=== PATIENT | female | born 1960 | race Caucasian/White ===

== ENCOUNTER → 2016-09-08 | Outpatient (CLI) | payer SELFPAY ==
[2016-09-08 09:23] LABS: Hemoglobin A1C 6.9 % (4.2-6.1)
== END | disposition home or self-care (01) ==
LOC: LABWHC1 07:58
PROVIDERS: ATTEND Podiatrist
DX: S80.922A Unspecified superficial injury of left lower leg, initial encounter (principal)
CPT/HCPCS: 36415; 83036

== ENCOUNTER → 2016-11-14 | Outpatient (CLI) | payer MEDICARE, OTHER | END | disposition home or self-care (01) | LOC: LABPAT 11:05 | PROVIDERS: ATTEND Podiatrist | DX: Z53.9 Procedure and treatment not carried out, unspecified reason (principal) ==

== ENCOUNTER → 2017-03-23 | Outpatient (CLI) | payer MEDICARE, BC ==
--- NOTE | 2017-03-23 11:33 | XR ---
EXAMINATION TYPE: XR tibia fibula LT DATE OF EXAM: 03/23/2017 COMPARISON: NONE HISTORY: Nonhealing wound TECHNIQUE: Two views are submitted. FINDINGS: There is sclerosis and periosteal reaction involving the distal tibia and fibula with fragmentation a nd dislocation of the ankle joint. Correlate for Charcot joint. Stents of soft tissue edema and swell ing. Chronic osteomyelitis in the differential diagnosis. IMPRESSION: 1. Marked sclerosis of the distal tibia and fibula with fragmentation involving the structures of the ankle and dislocation of the ankle joint. Correlate for Charcot joint and chronic osteomyelitis.
== END | disposition home or self-care (01) ==
LOC: RADXRMAIN 10:59
PROVIDERS: ATTEND Podiatrist
DX: S93.05XA Dislocation of left ankle joint, initial encounter (principal); M89.8X7 Other specified disorders of bone, ankle and foot

== ENCOUNTER → 2017-12-10 | Outpatient (CLI) | payer MEDICARE, BC ==
[2017-12-10 09:04] LABS: HCT 39.8 % (34.0-46.0); HGB 13.6 gm/dL (11.4-16.0); MCH 33.3 pg (25.0-35.0); MCHC 34.2 g/dL (31.0-37.0); MCV 97.4 fL (80.0-100.0); Mean Platelet Volume 7.2; Platelet Count 196 k/uL (150-450); RBC 4.09 m/uL (3.80-5.40); RDW 15.6 % (11.5-15.5)
[2017-12-10 09:20] LABS: Albumin 3.9 g/dL (3.5-5.0); Calcium 9.2 mg/dL (8.4-10.2); Potassium 5.4 mmol/L (3.5-5.1); Total Bilirubin 0.3 mg/dL (0.2-1.3); Total Protein 7.7 g/dL (6.3-8.2)
[2017-12-10 19:22] LABS: Hemoglobin A1C 7.8 % (4.0-6.0)
== END | disposition home or self-care (01) ==
LOC: LABWHC1 08:24
PROVIDERS: ATTEND Family Medicine
DX: Z00.00 Encounter for general adult medical examination without abnormal findings (principal); I25.10 Atherosclerotic heart disease of native coronary artery without angina pectoris; I10 Essential (primary) hypertension; E11.9 Type 2 diabetes mellitus without complications
CPT/HCPCS: 36415; 80053; 80061; 83036; 85027